=== PATIENT | female | born 2000 | race Two or more races ===

== ENCOUNTER 2021-09-05 03:34 | Emergency (ER) | payer OTHER ==
[~2021-09-05] VITALS: Ht 157.5 cm; Wt 84.1 kg
[2021-09-05 04:19] LABS: BILIRUBIN,URINE NEGATIVE (NEG); CLARITY,URINE CLOUDY; COLOR,URINE YELLOW; NITRITE,URINE NEGATIVE (NEG); PH,URINE 7.5 (<5.0-8.0); PROTEIN,URINE NEGATIVE (NEG-TRACE)
[2021-09-05 04:28] LABS: AMORPHOUS SEDIMENT,UR PRESENT /HPF; BACTERIA,URINE MODERATE /HPF (0-FEW); GRANULAR CASTS,URINE OCCASIONAL /HPF; RBC,URINE 0 /HPF (0-2)
[2021-09-05] MEDS ORDERED: KETOROLAC 60 MG/2 ML VIAL. IM ONE (05:00)
--- NOTE | 2021-09-05 05:04 | RAD ---
CT abdomen and pelvis without contrast PQRS statement: CT scans at this facility use dose reduction including either automated exposure cont rol, iterative reconstructions, and /or weight based radiation dosing via mA and kV modification when appropriate to reduce radiation dose to as low as reasonably achievable. HISTORY: Flank pain. FINDINGS: Lung bases and bones are unremarkable. Hypodensity of the liver likely fatty. There is foca l fatty sparing at gallbladder fossa. Pancreas, gallbladder, adrenal glands, kidneys and spleen are u nremarkable. No obstruction or inflammation of the GI tract. The appendix. No abdominal fluid. No uri nary calculi. Pelvis findings: Small amount of pelvic free fluid stranding the uterine fundus and ovaries and low-l wiliam pelvic small bowel loops. This partially obscures visualization of the uterus and ovaries which are grossly normal although a small mass lesion of uterus or ovaries would be difficult to visualize. No bladder calculi. Bladder, rectum and bones are unremarkable. IMPRESSION: 1. No acute process. Appendix is negative. No urinary calculi or hydronephrosis... 2. Small volume of pelvic free fluid surrounding the uterus and ovaries. Etiology of this fluid is in determinate although can be commonly observed due to recent ovulation or ovarian cyst rupture. Pelvic organs could be further evaluated with sonography as deemed necessary. Electronically signed by: Marcelo Us MD (09/05/2021 5:02 AM) [facility]
[2021-09-05 05:26] VITALS: BP 101/57
[2021-09-05] MEDS ORDERED: PHEN-318 PO (05:28)
[2021-09-05] MEDS ORDERED: NITR100C63 PO (05:28)
--- NOTE | 2021-09-05 05:29 | PHYS DOC ---
Past Medical History Past Surgical History: No Surgical History Smoking Status: Never Smoker Alcohol Use: None General Adult EDM: Chief Complaint: FLANK PAIN HPI: HPI: Patient is a 21 year old female presents with a chief complaint of left-sided abdominal and flank pain for the last 4 days. Patient states since onset pain is progressively coming worse. She denies any urinary frequency urgency or dysuria. Patient has had no nausea or vomiting. Patient also complains of bila teral leg pain which she states is to the bone. Patient's pain radiates from the hip to the knees. She denies any injuries. Review of Systems: Review of Systems: Review of systems: Constitutional symptoms- No fever, no chills. Eyes- No Discharge, No Visual Loss Respiratory symptoms- No shortness of breath, No wheezing, No Dyspnea on Exertion Cardiovascular Systems; No chest pain, No Palpitations, No syncope Gastrointestinal symptoms: Positive abdominal pain, no nausea, no vomiting or diarrhea. Genitourinary symptoms: No dysuria. Positive flank pain Musculoskeletal symptoms: No back pain Positive extremity pain. NEUROLOGICAL Symptoms: No headache, no generalized weakness; No focal Weakness Skin: No rash. Heart Score: C/O Chest Pain: N/A Risk Factors: Risk Factors: DM, Current or recent (<one month) smoker, HTN, HLP, family history of CAD, obesity. Risk Scores: Score 0 - 3: 2.5% MACE over next 6 weeks - Discharge Home Score 4 - 6: 20.3% MACE over next 6 weeks - Admit for Clinical Observation Score 7 - 10: 72.7% MACE over next 6 weeks - Early Invasive Strategies Current Medications: Current Medications Medications (Trade) Dose Ordered Sig/[facility] Start Time Stop Time Status Last Admin Dose Admin Ketorolac Tromethamine (Toradol Im) 60 mg 1X ONCE 09/05/21 05:00 09/05/21 05:01 DC 09/05/21 04:32 60 MG Allergies: Allergies: Allergies Coded Allergies Type Severity Reaction Last Updated Verified No Known Drug Allergies 09/05/21 No Physical Exam: PE: General: alert, no acute distress. Skin: warm, dry and intact, no erythema, no rash. HENT: bilateral external ears normal, oropharynx moist, nose normal. Head:: Normocephalic, atraumatic. Neck: Trachea midline. Eyes: EOMI, Normal conjunctiva, No drainage CARDIOVASCULAR: Regular rate and rhythm RESPIRATORY: No respiratory distress Back: Full range of motion. MUSCULOSKELETAL: Full range of motion of bilateral upper and lower extremities. GASTROINTESTINAL: Abdomen soft without rebound or guarding. NEUROLOGICAL: Alert and noted to person, place and time. No neurological deficits observed Psychiatric: Cooperative. Normal judgment Current Patient Data: Labs: Laboratory Tests Test 09/05/21 04:00 09/05/21 04:01 Urine Collection Type Unknown Urine Color Yellow Urine Clarity Cloudy Urine pH 7.5 (<5.0-8.0) Urine Specific [place] >=1.030 (1.000-1.030) Urine Protein Negative mg/dL (NEG-TRACE) Urine Glucose (UA) Negative mg/dL (NEG) Urine Ketones (Stick) Negative mg/dL (NEG) Urine Blood Negative (NEG) Urine Nitrite Negative (NEG) Urine Bilirubin Negative (NEG) Urine Urobilinogen Dipstick 1.0 mg/dL (0.2 mg/dL) Urine Leukocyte Esterase Small (NEG) Urine RBC 0 /HPF (0-2) Urine WBC 5-10 /HPF (0-4) Urine Squamous Epithelial Cells Mod /LPF Urine Amorphous Sediment Present /HPF Urine Bacteria Moderate /HPF (0-FEW) Urine Granular Casts Occasional /HPF Urine Mucus Mod /LPF POC Urine HCG, Qualitative Hcg negative (Negative) Vital Signs: Vital Signs Date Time Temp Pulse Resp B/P (MAP) Pulse Ox O2 Delivery O2 Flow Rate FiO2 09/05/21 03:55 97.8 89 20 98/54 (69) 97 Room Air 97.8 EKG: EKG: [] Radiology/Procedures: Radiology/Procedures: [] Course & Med Decision Making: Course & Med Decision Making Pertinent Labs and Imaging studies reviewed. (See chart for details) [] Dragon Disclaimer: Dragon Disclaimer: This electronic medical record was generated, in whole or in part, using a voice recognition dictation system. Departure Departure Impression: Primary Impression: Flank pain Additional Impression: Urinary tract infection Disposition: HOME / SELF CARE / HOMELESS Condition: STABLE Referrals: NO PCP (PCP) Patient Instructions: Flank Pain, Urinary Tract Infection Scripts Phenazopyridine Hcl (PYRIDIUM) 200 Mg Tablet 1 TAB PO TID for urinary discomfort for 3 Days, #9 TAB 0 Refills Prov: AMBIKA BOUCHER DO 09/05/21 Nitrofurantoin Macrocrystal (MACRODANTIN) 100 Mg Capsule 1 CAP PO BID for 7 Days, #14 CAP 0 Refills Prov: AMBIKA BOUCHER DO 09/05/21 AMBIKA BOUCHER DO Sep 05, 2021 05:28
== END 2021-09-05 05:42 | disposition home or self-care (01) ==
LOC: ER 03:34
DX: N39.0 Urinary tract infection, site not specified (principal)
CPT/HCPCS: 74176; 81001; 81025; 87086; 96372; 99284; J1885

== ENCOUNTER 2021-09-10 18:48 | Emergency (ER) | payer OTHER ==
[~2021-09-10 18:48] MED LIST: NITR100C63 PO; PHEN-318 PO
== END 2021-09-10 19:21 | disposition left against medical advice (07) ==
LOC: ER 18:48
DX: M79.10 Myalgia, unspecified site (principal); Z53.21 Procedure and treatment not carried out due to patient leaving prior to being seen by health care provider